=== PATIENT | male | born 1970 | race Hispanic/Latino ===

== ENCOUNTER → 2020-04-18 | Outpatient (CLI) | payer OTHER ==
[~2020-04-18] MED LIST: NAPR-1023 PO
== END | disposition home or self-care (01) ==
LOC: RAH 13:39
PROVIDERS: ATTEND Family Medicine
DX: Z13.6 Encounter for screening for cardiovascular disorders (principal)
CPT/HCPCS: 75571

== ENCOUNTER → 2023-03-13 | Outpatient (CLI) | payer BC ==
[2023-03-13 09:12] LABS: CREATININE 1.2 mg/dL (0.5-1.5); POTASSIUM 4.9 mmol/L (3.5-5.1)
== END | disposition home or self-care (01) ==
LOC: LAB 08:27
PROVIDERS: ATTEND Family Medicine
DX: Z00.00 Encounter for general adult medical examination without abnormal findings (principal); E78.00 Pure hypercholesterolemia, unspecified; G43.009 Migraine without aura, not intractable, without status migrainosus
CPT/HCPCS: 36415; 80048

== ENCOUNTER → 2023-03-17 | Outpatient (CLI) | payer BC ==
[~2023-03-17] MED LIST changes: +IOHEXOL-350 50ML VIAL IV ONE
== END | disposition home or self-care (01) ==
LOC: RAH 07:35
PROVIDERS: ATTEND Family Medicine
DX: G43.009 Migraine without aura, not intractable, without status migrainosus (principal)
CPT/HCPCS: 70470; Q9967